=== PATIENT | male | born 1970 | race Caucasian/White ===

== ENCOUNTER 2023-04-26 00:41 | Day surgery (SDC) | payer BC, SELFPAY ==
[2023-04-17 13:28] VITALS: BMI 32.3
[2023-04-26 06:44] VITALS: BP 140/92; PULSE 93; RESP 16; TEMP 36.2; O2SAT 97
[2023-04-26] MEDS: LACTATED RINGERS 1,000 ML 150 ML IV CONT (06:53)
[2023-04-26 06:55] LABS: Glucose Point of Care 196 mg/dl (65-105)
--- NOTE | 2023-04-26 07:45 | WPDANESEPPF ---
Anes - Initial Pre Proc Eval Procedure: Operation Date: 04/26/23 08:00 Proposed Procedures p Colonoscopy - Giovany St MD Date/Time: 04/26/23 07:45 Surgeon: Giovany St MD Pre Op Diagnosis: hx colon polyps Patient Data Age: 52 Gender: M Height: 1.78 m Weight: 99.8 kg Last Vital Signs Temp 97.1 F L 04/26/23 06:44 Pulse 93 04/26/23 06:44 Resp 16 04/26/23 06:44 BP 140/92 H 04/26/23 06:44 Pulse Ox 97 04/26/23 06:44 O2 Del Method Room Air 04/26/23 06:44 Allergies Allergy/AdvReac Type Severity Reaction Status Date / Time No Known Allergies Allergy Verified 04/26/23 06:43 Home Medications Medication Instructions Recorded Confirmed Type cyclobenzaprine 10 mg tablet 10 mg PO HS PRN Muscle Spasm 04/17/23 04/26/23 History lisinopril 5 mg tablet 5 mg PO DAILY 04/17/23 04/26/23 History metformin 500 mg tablet,extended 1,000 mg PO BID 04/17/23 04/26/23 History release 24 hr rosuvastatin 20 mg tablet 20 mg PO DAILY 04/17/23 04/26/23 History Laboratory Tests 04/26/23 06:51 POC Capillary Glucose 196 H mg/dl (65-105) Patient hx anesthesia problems: none Family hx anesthesia problems: none Results Review: All pre-operative results and documents have been reviewed as part of the pre-operative evaluation. [facility] Social History Social History Smoking status: Never smoker Alcohol intake: never Substance use: current Substance use type: marijuana Living arrangements: alone Spiritual care concerns: No Anes - Eval Final PreProcedure Day of Procedure 04/26/23 07:45 Patient weight: obese Heart: regular rate and rhythm Lungs: clear to auscultation Airway: Mallampati scale class II Neurological: alert and oriented Last oral intake: >/= 8 hours ASA classification: II Emergent: no Anesthetic plan: proceed Anesthesia type and monitoring: general GIVS and standard monitoring Results Review: All pre-operative results and documents have been reviewed as part of the pre-operative evaluation. Informed Consent: The patient's anesthetic plan and its attendant risks and benefits were discussed with the patient/family/POA. Questions were solicited and answers provided to the satisfaction of the patient/family/POA.
--- NOTE | 2023-04-26 07:51 | PM.HPGS ---
History of Present Illness History of Present Illness Consent: Risks, benefits, and alternatives have been discussed and questions answered. Patient agrees to proceed with procedure. Chief complaint: hx colon polyps Narrative: Fredy Stark is a 52 year old male with colon polyp 3 years ago Review of Systems Constitutional: Constitutional: Denies headache(s) and Denies weakness Eyes: Eyes: Denies blurry vision ENT: Reports Normal hearing present, Denies headache(s) and Denies neck pain Cardiovascular: Cardiovascular: Denies chest pain and Denies dyspnea Respiratory: Respiratory: Denies dyspnea Gastrointestinal: Gastrointestinal: Reports no additional gastrointestinal complaints Genitourinary: Genitourinary: Denies dysuria Musculoskeletal: Musculoskeletal: Denies neck pain Integumentary/Breasts: Skin/Breast: Denies dry skin Neurologic: Reports Normal hearing present, Denies headache(s) and Denies weakness Psychiatric: Psychiatric: Denies anxiety Endocrine: Endocrine: Denies change in body appearance Hematologic/Lymphatic: Hematologic/Lymphatic: Denies easy bleeding Allergic/Immunologic: Allergic/Immunologic: Denies urticaria PMFSH Past Medical History Medical History (Updated 04/26/23 @ 07:[address] MD) Colon polyp Social History Social History Smoking status: Never smoker Alcohol intake: never Substance use: current Substance use type: marijuana Living arrangements: alone Spiritual care concerns: No Meds Home Medications and Allergies Home Medications Medication Instructions Recorded Confirmed Type cyclobenzaprine 10 mg tablet 10 mg PO HS PRN Muscle Spasm 04/17/23 04/26/23 History lisinopril 5 mg tablet 5 mg PO DAILY 04/17/23 04/26/23 History metformin 500 mg tablet,extended 1,000 mg PO BID 04/17/23 04/26/23 History release 24 hr rosuvastatin 20 mg tablet 20 mg PO DAILY 04/17/23 04/26/23 History Allergies Allergy/AdvReac Type Severity Reaction Status Date / Time No Known Allergies Allergy Verified 04/26/23 06:43 Vital Signs Vital Signs - 24 hr 04/26/23 06:44 Temperature 97.1 F L Pulse Rate 93 Respiratory Rate 16 Blood Pressure 140/92 H Pulse Oximetry 97 Oxygen Delivery Room Air Exam Const: General: comfortable and no acute distress HENMT: Face/Nose/Sinus: Normal nares present Eyes: General: appearance normal, both eyes and all related structures Neck: Neck: no JVD Resp: Auscultation: clear to auscultation bilaterally Cardio: Rate: regular rate Rhythm: regular rhythm GI: Inspection: non-distended GI Palp: Yes Soft to palpation Skin: General skin exam: normal color Neuro: General: gait normal Speech: normal speech Extrem: General: normal to inspection Psych: Mental Status: mental status grossly normal Assessment and Plan Assessment and plan (1) Colon polyp: Code(s): K63.5 - Polyp of colon Status: Acute Assessment and Plan: colonoscopy
[2023-04-26 08:11] VITALS: BP 127/85; PULSE 95; RESP 19; O2SAT 95
[2023-04-26 08:21] VITALS: BP 141/81; PULSE 86; RESP 16; O2SAT 96
[2023-04-26 08:31] VITALS: BP 115/77; PULSE 84; RESP 16; O2SAT 96
== END 2023-04-26 08:36 | disposition home or self-care (01) ==
PROVIDERS: PCP Family Medicine; Visit Provider Internal Medicine Gastroenterology
PROC: 0DJD8ZZ Inspection of Lower Intestinal Tract, Via Natural or Artificial Opening Endoscopic (ICD-10-PCS; CPT 45378; principal; 2023-04-26 08:00)
DX: Z12.11 Encounter for screening for malignant neoplasm of colon (principal); D12.2 Benign neoplasm of ascending colon; D12.4 Benign neoplasm of descending colon; K64.8 Other hemorrhoids; Z79.84 Long term (current) use of oral hypoglycemic drugs; E66.9 Obesity, unspecified; Z68.31 Body mass index [BMI] 31.0-31.9, adult; F12.90 Cannabis use, unspecified, uncomplicated
CPT/HCPCS: 45385; 82948; 88305; J2704; J7120